=== PATIENT | male | born 1970 | race Caucasian/White ===

== ENCOUNTER 2016-07-17 16:50 | Emergency (ER) | payer OTHER ==
[2016-07-17 17:52] VITALS: BP 115/71; PULSE 111; RESP 20; TEMP 98.1; O2SAT 100
[2016-07-17] MEDS ORDERED: IBUPROFEN 400 MG TAB PO ONE (17:55)
[2016-07-17] MEDS ORDERED: ACETAMINOPHEN 500 MG 500 MG TAB PO ONE (17:55)
[2016-07-17] MEDS ORDERED: PROMETHAZINE HCL 6.25 MG/5 ML SYRP PO ONE ×2 (17:55→18:09)
[2016-07-17] MEDS ORDERED: IBUPROFEN 400 MG TAB ONE (17:56)
[2016-07-17] MEDS ORDERED: ACETAMINOPHEN 500 MG 500 MG TAB ONE (17:56)
[2016-07-17 18:12] LABS: BASOPHILS % (AUTO) 1 % (0-3); EOSINOPHILS % (AUTO) 1 % (0-9); HEMATOCRIT 39 % (39-53); MEAN CORPUSCULAR HGB CONC 37.2 gm/dl (32.0-36.0); MEAN CORPUSCULAR VOLUME 88 fL (80-100); MONOCYTES % (AUTO) 7.9 % (0-12); NEUTROPHILS % (AUTO) 48.8 % (37-80)
[2016-07-17 18:24] LABS: ALBUMIN 3.8 gm/dl (3.4-5.0); CALCIUM 8.7 mg/dl (8.5-10.1); POTASSIUM 4.1 mMol/L (3.5-5.1)
[2016-07-17 18:36] LABS: NORMAL RBCS PRESENT
== END 2016-07-17 18:45 | DRG 880 ==
LOC: ED 16:50
DX: F41.9 Anxiety disorder, unspecified (principal)
CPT/HCPCS: 36415; 80053; 85025; 99282